=== PATIENT | female | born 2000 | race African-American/Black ===

== ENCOUNTER 2021-02-27 21:54 | Inpatient (IN) | payer OTHER ==
[2021-02-27 22:02] VITALS: BMI 24.1
[2021-02-27] MEDS ORDERED: CEFTRIAXONE 1 GM in DEXTROSE 5%-WATER - 100 ML IVPB ONE (22:38)
[2021-02-27] MEDS ORDERED: CEFTRIAXONE 1 GM/50 ML BAG ONE (22:44)
[2021-02-27] MEDS ORDERED: MEROPENEM 1 GM in DEXTROSE 5%-WATER 100 ML IVPB ONE (22:47)
[2021-02-27] MEDS ORDERED: SODIUM CHLORIDE 1,000 ML IV STA (22:52)
[2021-02-27 23:05] LABS: BASO % 0.3 % (0-2.0); EOS % 0.5 % (0-4.5); HEMATOCRIT 36.3 % (32.4-45.2); LYMPH % 18.2 % (8-40); MCH 28.1 pg (25.7-33.7); MCHC 33.2 g/dl (32.0-36.0); MEAN CELL VOLUME 84.4 fl (80-96); MONO % 13.3 % (3.8-10.2); NEUT % 67.7 % (42.8-82.8); PLATELET COUNT 196 K/MM3 (134-434); RDW 13.7 % (11.6-15.6); WHITE BLOOD COUNT 5.8 K/mm3 (4.0-10.0)
[2021-02-27] MEDS ORDERED: MEROPENEM 1 GM VIAL (RESTRICTED TO ID) IVPB ONE (23:19)
[2021-02-27 23:32] LABS: CHLORIDE 100 mmol/L (98-107); SODIUM 127 mmol/L (136-145)
[2021-02-27 23:35] LABS: ALBUMIN 3.5 g/dl (3.4-5.0); ANION GAP 4 MMOL/L (8-16); BLOOD UREA NITROGEN 4.4 mg/dL (7-18); CALCIUM 8.9 mg/dL (8.5-10.1); CO2 23 mmol/L (21-32); GLUCOSE,RANDOM 86 mg/dL (74-106)
[2021-02-27 23:38] LABS: CREATININE 0.7 mg/dL (0.55-1.3)
[2021-02-27 23:40] LABS: BILIRUBIN,TOTAL 0.5 mg/dL (0.2-1); TOT PROT 8.2 g/dl (6.4-8.2)
[2021-02-27 23:41] LABS: ALK PHOS 90 U/L (45-117); SGOT/AST 95 U/L (15-37); SGPT/ALT 48 U/L (13-61)
[2021-02-27 23:56] LABS: ERYTHROCYTE SEDIMENTATION RATE 29 mm/hr (0-20)
[2021-02-28 00:23] LABS: EPI CELLS >36 /uL (0-25.1); HYALINE CASTS 2 /uL (0-3.1); PH,URINE 6.5 (5.0-8.0); URINE APPEARANCE CLOUDY; URINE BACTERIA 6415 /uL (0-1359); URINE BILIRUBIN NEGATIVE (NEGATIVE); URINE COLOR YELLOW; URINE GLUCOSE (UA) NEGATIVE (NEGATIVE); URINE KETONE 1+ (NEGATIVE); URINE LEUK ESTERASE 3+ (NEGATIVE); URINE NITRITE NEGATIVE (NEGATIVE); URINE PROTEIN 1+ (NEGATIVE); URINE RBC 22 /uL (0-23.9); URINE UROBILINOGEN 0.2 mg/dL (0.2-1.0); URINE WBC 1213 /uL (0-25.8)
[2021-02-28 00:41] LABS: BLOOD UREA NITROGEN 3.9 mg/dL (7-18)
[2021-02-28 01:01] LABS: CALCIUM 8.5 mg/dL (8.5-10.1); CREATININE 0.6 mg/dL (0.55-1.3)
[2021-02-28] MEDS ORDERED: ACETAMINOPHEN 1000 MG/100 ML VIAL (NON FORMULARY) IVPB ONE (01:03)
[2021-02-28] MEDS ORDERED: MAGNESIUM SULF 50% (8.12 MEQ/2 ML-1 GM VIAL) IVPB ONE (01:13)
[2021-02-28] MEDS ORDERED: POTASSIUM CHLORIDE TABS 20 MEQ TABLET.ER (FP) PO ONE ×2 (01:13→01:24)
[2021-02-28] MEDS ORDERED: MAGNESIUM 1GM/D5W - 1 GM/100 ML IVPB IVPB ONE (01:24)
[2021-02-28] MEDS ORDERED: ACETAMINOPHEN INJECTION 100 ML IVPB ONE (01:24)
[2021-02-28] MEDS ORDERED: ONDANSETRON 4 MG/2 ML VIAL IVPUSH PRN (05:25)
[2021-02-28] MEDS ORDERED: ALBUTEROL SO4 HFA INHALER IH PRN (05:33)
[2021-02-28] MEDS: LACTATED RINGERS SOLUTION 1,000 ML IV SCH (06:39)
[2021-02-28] MEDS ORDERED: MEROPENEM 1 GM in DEXTROSE 5%-WATER 100 ML IVPB SCH ×2 (09:45→10:00)
[2021-02-28] MEDS ORDERED: DEXTROSE 5%-WATER 100 ML IVPB ONE (19:58)
[2021-02-28] MEDS ORDERED: MEROPENEM 1 GM VIAL (RESTRICTED TO ID) IVPB ONE (19:58)
[2021-02-28] MEDS: MEROPENEM 1 GM in DEXTROSE 5%-WATER 100 ML IVPB SCH (20:03)
[2021-03-01] MEDS ORDERED: DEXTROSE 5%-WATER 100 ML IVPB ONE ×3 (00:09→17:34)
[2021-03-01] MEDS ORDERED: MEROPENEM 1 GM VIAL (RESTRICTED TO ID) IVPB ONE ×3 (00:09→17:34)
[2021-03-01] MEDS: MEROPENEM 1 GM in DEXTROSE 5%-WATER 100 ML IVPB SCH ×3 (02:01→18:05)
[2021-03-01] MEDS: LACTATED RINGERS SOLUTION 1,000 ML IV SCH ×2 (04:18→15:42)
[2021-03-01 08:27] LABS: BASO % 0.7 % (0-2.0); EOS % 5.1 % (0-4.5); HEMATOCRIT 33.3 % (32.4-45.2); HEMOGLOBIN 11.2 GM/dL (10.7-15.3); LYMPH % 62.7 % (8-40); MCH 27.9 pg (25.7-33.7); MCHC 33.5 g/dl (32.0-36.0); MEAN CELL VOLUME 83.1 fl (80-96); MEAN PLT VOLUME 8.1 fl (7.5-11.1); MONO % 16.9 % (3.8-10.2); NEUT % 14.6 % (42.8-82.8); PLATELET COUNT 204 K/MM3 (134-434); RBC 4.01 M/mm3 (3.60-5.2); RDW 13.2 % (11.6-15.6); WHITE BLOOD COUNT 2.7 K/mm3 (4.0-10.0)
[2021-03-01 08:52] LABS: CALCIUM 8.5 mg/dL (8.5-10.1)
[2021-03-01 08:53] LABS: ALBUMIN 3.2 g/dl (3.4-5.0); BLOOD UREA NITROGEN 3.8 mg/dL (7-18); MAGNESIUM 1.9 mg/dL (1.8-2.4)
[2021-03-01 08:56] LABS: CREATININE 0.5 mg/dL (0.55-1.3); PHOSPHOROUS 3.3 mg/dL (2.5-4.9)
[2021-03-01 08:58] LABS: TOT PROT 6.3 g/dl (6.4-8.2)
[2021-03-01 09:00] LABS: BILIRUBIN,TOTAL 0.3 mg/dL (0.2-1)
[2021-03-01 13:27] LABS: ANISOCYTOSIS 0; MACROCYTOSIS 0; OVALOCYTE 1+; PLATELET ESTIMATE NORMAL
[2021-03-01] MEDS: HEPARIN NA (PORCINE) 5,000 UNITS/ML 1ML VIAL SQ SCH (21:14)
[2021-03-02] MEDS ORDERED: MEROPENEM 1 GM VIAL (RESTRICTED TO ID) IVPB ONE ×3 (02:13→17:19)
[2021-03-02] MEDS ORDERED: DEXTROSE 5%-WATER 100 ML IVPB ONE ×3 (02:14→17:20)
[2021-03-02] MEDS: MEROPENEM 1 GM in DEXTROSE 5%-WATER 100 ML IVPB SCH ×3 (03:39→17:28)
[2021-03-02] MEDS: LACTATED RINGERS SOLUTION 1,000 ML IV SCH ×4 (06:47→20:25)
[2021-03-02] MEDS: HEPARIN NA (PORCINE) 5,000 UNITS/ML 1ML VIAL SQ SCH ×2 (06:48→14:27)
[2021-03-02 07:23] LABS: HEMATOCRIT 34.5 % (32.4-45.2); HEMOGLOBIN 11.7 GM/dL (10.7-15.3); MCH 28.1 pg (25.7-33.7); MCHC 33.9 g/dl (32.0-36.0); MEAN CELL VOLUME 82.9 fl (80-96); MEAN PLT VOLUME 8.1 fl (7.5-11.1); PLATELET COUNT 204 K/MM3 (134-434); RBC 4.16 M/mm3 (3.60-5.2); RDW 13.3 % (11.6-15.6); WHITE BLOOD COUNT 3.6 K/mm3 (4.0-10.0)
[2021-03-02 07:41] LABS: BLOOD UREA NITROGEN 7.1 mg/dL (7-18); CALCIUM 8.9 mg/dL (8.5-10.1)
[2021-03-02 07:45] LABS: CREATININE 0.5 mg/dL (0.55-1.3)
[2021-03-02 11:52] LABS: ANISOCYTOSIS 0; MACROCYTOSIS 0; PLATELET ESTIMATE NORMAL
[2021-03-02 22:24] LABS: EPI CELLS >36 /uL (0-25.1); HYALINE CASTS 7 /uL (0-3.1); URINE APPEARANCE CLOUDY; URINE BACTERIA 590 /uL (0-1359); URINE BILIRUBIN NEGATIVE (NEGATIVE); URINE COLOR YELLOW; URINE GLUCOSE (UA) NEGATIVE (NEGATIVE); URINE KETONE NEGATIVE (NEGATIVE); URINE LEUK ESTERASE 2+ (NEGATIVE); URINE NITRITE NEGATIVE (NEGATIVE); URINE PROTEIN NEGATIVE (NEGATIVE); URINE RBC 21 /uL (0-23.9); URINE UROBILINOGEN 0.2 mg/dL (0.2-1.0); URINE WBC 438 /uL (0-25.8)
[2021-03-03] MEDS ORDERED: DEXTROSE 5%-WATER 100 ML IVPB ONE ×3 (01:57→18:24)
[2021-03-03] MEDS ORDERED: MEROPENEM 1 GM VIAL (RESTRICTED TO ID) IVPB ONE ×3 (01:57→18:24)
[2021-03-03] MEDS: MEROPENEM 1 GM in DEXTROSE 5%-WATER 100 ML IVPB SCH ×3 (01:59→18:29)
[2021-03-03 07:46] LABS: BASO % 0.5 % (0-2.0); EOS % 4.5 % (0-4.5); HEMATOCRIT 35.4 % (32.4-45.2); HEMOGLOBIN 11.8 GM/dL (10.7-15.3); LYMPH % 60.6 % (8-40); MCH 27.9 pg (25.7-33.7); MCHC 33.4 g/dl (32.0-36.0); MEAN CELL VOLUME 83.7 fl (80-96); MEAN PLT VOLUME 7.9 fl (7.5-11.1); MONO % 13.9 % (3.8-10.2); NEUT % 20.5 % (42.8-82.8); PLATELET COUNT 234 K/MM3 (134-434); RBC 4.23 M/mm3 (3.60-5.2); RDW 13.3 % (11.6-15.6)
[2021-03-03 08:19] LABS: CHLORIDE 107 mmol/L (98-107); SODIUM 140 mmol/L (136-145)
[2021-03-03 08:28] LABS: ALBUMIN 3.4 g/dl (3.4-5.0); ANION GAP 4 MMOL/L (8-16); CALCIUM 9.3 mg/dL (8.5-10.1); CO2 29 mmol/L (21-32); GLUCOSE,RANDOM 84 mg/dL (74-106)
[2021-03-03 08:30] LABS: SGOT/AST 24 U/L (15-37); SGPT/ALT 43 U/L (13-61)
[2021-03-03 08:31] LABS: CREATININE 0.6 mg/dL (0.55-1.3)
[2021-03-03 08:32] LABS: BILIRUBIN,TOTAL 0.3 mg/dL (0.2-1); TOT PROT 6.8 g/dl (6.4-8.2)
[2021-03-03 08:33] LABS: ALK PHOS 96 U/L (45-117)
[2021-03-03 08:55] LABS: BLOOD UREA NITROGEN 2.7 mg/dL (7-18)
[2021-03-03 10:19] LABS: ANISOCYTOSIS 0; MACROCYTOSIS 0; PLATELET ESTIMATE NORMAL
[2021-03-03] MEDS: LACTATED RINGERS SOLUTION 1,000 ML IV SCH ×2 (13:07→18:29)
[2021-03-04] MEDS ORDERED: MEROPENEM 1 GM VIAL (RESTRICTED TO ID) IVPB ONE ×2 (02:48→08:53)
[2021-03-04] MEDS ORDERED: DEXTROSE 5%-WATER 100 ML IVPB ONE ×2 (02:48→08:54)
[2021-03-04] MEDS: MEROPENEM 1 GM in DEXTROSE 5%-WATER 100 ML IVPB SCH ×2 (02:58→10:50)
[2021-03-04 07:38] LABS: BASO % 0.4 % (0-2.0); EOS % 4.6 % (0-4.5); HEMATOCRIT 35.8 % (32.4-45.2); HEMOGLOBIN 11.8 GM/dL (10.7-15.3); LYMPH % 62.1 % (8-40); MCH 27.6 pg (25.7-33.7); MEAN CELL VOLUME 83.7 fl (80-96); MEAN PLT VOLUME 7.9 fl (7.5-11.1); MONO % 13.7 % (3.8-10.2); NEUT % 19.2 % (42.8-82.8); PLATELET COUNT 239 K/MM3 (134-434); RBC 4.27 M/mm3 (3.60-5.2); RDW 13.5 % (11.6-15.6); WHITE BLOOD COUNT 4.1 K/mm3 (4.0-10.0)
[2021-03-04 07:52] LABS: CALCIUM 8.9 mg/dL (8.5-10.1)
[2021-03-04 07:53] LABS: BLOOD UREA NITROGEN 6.9 mg/dL (7-18)
[2021-03-04 07:55] LABS: CREATININE 0.5 mg/dL (0.55-1.3)
[2021-03-04 11:04] LABS: ANISOCYTOSIS 0; MACROCYTOSIS 0; OVALOCYTE 1+; PLATELET ESTIMATE NORMAL
[2021-03-04] MEDS ORDERED: ERTAPENEM SODIUM 1 GM in SODIUM CHLORIDE 50 ML IVPB ONE (12:00)
[2021-03-04] MEDS ORDERED: ERTAPENEM SODIUM 1 GM VIAL ONE (12:33)
[2021-03-04] MEDS ORDERED: SODIUM CHLORIDE 50 ML IVPB ONE (12:34)
[2021-03-04 14:23] VITALS: BP 108/59; PULSE 57; TEMP 98.3
[2021-03-04] MEDS: LACTATED RINGERS SOLUTION 1,000 ML IV SCH (15:00)
== END 2021-03-04 15:02 | disposition home or self-care (01) | DRG 690 ==
LOC: JER 21:54 → JERBED 02-28 04:21 → J7W 02-28 19:34
PROVIDERS: ADMIT Internal Medicine; ATTEND Internal Medicine
PROC: 02HV33Z Insertion of Infusion Device into Superior Vena Cava, Percutaneous Approach (ICD-10-PCS; principal; 2021-03-04)
DX: N39.0 Urinary tract infection, site not specified (principal); Q61.3 Polycystic kidney, unspecified; Z16.12 Extended spectrum beta lactamase (ESBL) resistance; J45.909 Unspecified asthma, uncomplicated; E87.6 Hypokalemia; E83.42 Hypomagnesemia; I89.0 Lymphedema, not elsewhere classified
CPT/HCPCS: 36415; 36569; 76775-TC; 80048; 80053; 81003; 82962; 83735; 84100; 84703; 85025; 85027; 85651; 87040; 87086; 93005; 93010; 99285-25; C9803; J0131; J1644; U0003; U0005

== ENCOUNTER 2021-03-05 10:48 | Day surgery (SDC) | payer OTHER ==
[~2021-03-05 10:48] MED LIST: ERTAPENEM SODIUM 1 GM in SODIUM CHLORIDE 50 ML IVPB ONE
[2021-03-05] MEDS ORDERED: ERTAPENEM SODIUM 1 GM VIAL ONE (11:03)
[2021-03-05] MEDS ORDERED: SODIUM CHLORIDE 50 ML IVPB ONE (11:04)
[2021-03-05 13:29] VITALS: BP 120/76; PULSE 68; TEMP 98
== END 2021-03-05 13:29 | disposition home or self-care (01) ==
LOC: JINFUSION 10:48 → J7W 10:49 → JINFUSION 13:29
PROVIDERS: ATTEND Internal Medicine Infectious Disease
DX: N39.0 Urinary tract infection, site not specified (principal); Z16.12 Extended spectrum beta lactamase (ESBL) resistance
CPT/HCPCS: 96365

== ENCOUNTER 2021-03-06 10:30 | Day surgery (SDC) | payer OTHER ==
[2021-03-06] MEDS ORDERED: ERTAPENEM SODIUM 1 GM in SODIUM CHLORIDE 50 ML IVPB ONE (10:45)
[2021-03-06] MEDS ORDERED: ERTAPENEM SODIUM 1 GM VIAL ONE (10:48)
[2021-03-06] MEDS ORDERED: SODIUM CHLORIDE 50 ML IVPB ONE (10:48)
[2021-03-06 15:51] VITALS: BP 120/76; PULSE 87; TEMP 98
== END 2021-03-06 11:40 | disposition home or self-care (01) ==
LOC: J7W 10:30 → JINFUSION 10:30
PROVIDERS: ATTEND Internal Medicine Infectious Disease
DX: N39.0 Urinary tract infection, site not specified (principal); Z16.12 Extended spectrum beta lactamase (ESBL) resistance
CPT/HCPCS: 96365

== ENCOUNTER 2021-03-07 10:43 | Day surgery (SDC) | payer OTHER ==
[2021-03-07] MEDS ORDERED: ERTAPENEM SODIUM 1 GM VIAL ONE (10:45)
[2021-03-07] MEDS ORDERED: SODIUM CHLORIDE 50 ML IVPB ONE (10:46)
[2021-03-07 11:05] VITALS: TEMP 98.4
[2021-03-07 11:14] VITALS: BP 116/76; PULSE 79
== END 2021-03-07 11:40 | disposition home or self-care (01) ==
LOC: J7W 10:43 → JINFUSION 10:43 → EDSTATUS 18:31
PROVIDERS: ATTEND Internal Medicine Infectious Disease
DX: N39.0 Urinary tract infection, site not specified (principal); Z16.12 Extended spectrum beta lactamase (ESBL) resistance
CPT/HCPCS: 96365

== ENCOUNTER 2021-03-08 10:29 | Day surgery (SDC) | payer OTHER ==
[2021-03-08] MEDS ORDERED: SODIUM CHLORIDE 50 ML IVPB ONE (10:38)
[2021-03-08] MEDS ORDERED: ERTAPENEM SODIUM 1 GM VIAL ONE (10:38)
[2021-03-08] MEDS ORDERED: ERTAPENEM SODIUM 1 GM in SODIUM CHLORIDE 50 ML IVPB ONE (11:00)
[2021-03-08 11:58] VITALS: BP 110/73; PULSE 80; TEMP 98
== END 2021-03-08 13:04 | disposition home or self-care (01) ==
LOC: JINFUSION 10:29 → J7W 10:30 → JINFUSION 13:04
PROVIDERS: ATTEND Internal Medicine Infectious Disease
DX: N39.0 Urinary tract infection, site not specified (principal); Z16.12 Extended spectrum beta lactamase (ESBL) resistance
CPT/HCPCS: 96365

== ENCOUNTER 2021-03-09 10:28 | Day surgery (SDC) | payer OTHER ==
[2021-03-09] MEDS ORDERED: ERTAPENEM SODIUM 1 GM in SODIUM CHLORIDE 50 ML IVPB ONE (10:45)
[2021-03-09] MEDS ORDERED: ERTAPENEM SODIUM 1 GM VIAL ONE (10:48)
[2021-03-09] MEDS ORDERED: SODIUM CHLORIDE 50 ML IVPB ONE (10:48)
[2021-03-09 12:06] VITALS: BP 112/61; PULSE 77; TEMP 98
== END 2021-03-09 11:30 | disposition home or self-care (01) ==
LOC: JINFUSION 10:28 → J7W 10:41 → JINFUSION 11:30
PROVIDERS: ATTEND Internal Medicine Infectious Disease
DX: N39.0 Urinary tract infection, site not specified (principal); Z16.12 Extended spectrum beta lactamase (ESBL) resistance
CPT/HCPCS: 96365

== ENCOUNTER 2021-03-10 10:37 | Day surgery (SDC) | payer OTHER ==
[2021-03-10] MEDS ORDERED: SODIUM CHLORIDE 50 ML IVPB ONE (11:06)
[2021-03-10] MEDS ORDERED: ERTAPENEM SODIUM 1 GM VIAL ONE (11:06)
[2021-03-10 12:07] VITALS: BP 111/58; PULSE 68; TEMP 98.9
== END 2021-03-10 14:28 | disposition home or self-care (01) ==
LOC: J7W 10:37 → JINFUSION 10:37
PROVIDERS: ATTEND Internal Medicine Infectious Disease
DX: N39.0 Urinary tract infection, site not specified (principal); Z16.12 Extended spectrum beta lactamase (ESBL) resistance
CPT/HCPCS: 96365

== ENCOUNTER 2021-03-11 10:40 | Day surgery (SDC) | payer OTHER ==
[2021-03-11] MEDS ORDERED: ERTAPENEM SODIUM 1 GM VIAL ONE (10:46)
[2021-03-11] MEDS ORDERED: SODIUM CHLORIDE 50 ML IVPB ONE (10:47)
[2021-03-11 11:11] VITALS: TEMP 98.8
[2021-03-11 11:47] VITALS: BP 112/72; PULSE 78
== END 2021-03-11 11:51 | disposition home or self-care (01) ==
LOC: J7W 10:40 → JINFUSION 10:40
PROVIDERS: ATTEND Internal Medicine Infectious Disease
DX: N39.0 Urinary tract infection, site not specified (principal); Z16.12 Extended spectrum beta lactamase (ESBL) resistance
CPT/HCPCS: 96365

== ENCOUNTER 2021-03-12 10:39 | Day surgery (SDC) | payer OTHER ==
[2021-03-12] MEDS ORDERED: ERTAPENEM SODIUM 1 GM in SODIUM CHLORIDE 50 ML IVPB ONE (10:45)
[2021-03-12] MEDS ORDERED: SODIUM CHLORIDE 50 ML IVPB ONE (10:47)
[2021-03-12] MEDS ORDERED: ERTAPENEM SODIUM 1 GM VIAL ONE (10:47)
[2021-03-12 11:42] VITALS: BP 120/71; PULSE 81; TEMP 98.1
== END 2021-03-12 11:42 | disposition home or self-care (01) ==
LOC: JINFUSION 10:39 → J7W 10:39 → JINFUSION 11:42
PROVIDERS: ATTEND Internal Medicine Infectious Disease
PROC: 3E033GC Introduction of Other Therapeutic Substance into Peripheral Vein, Percutaneous Approach (ICD-10-PCS; principal; 2021-03-12)
DX: N39.0 Urinary tract infection, site not specified (principal); Z16.12 Extended spectrum beta lactamase (ESBL) resistance
CPT/HCPCS: 96365

== ENCOUNTER 2021-03-13 10:38 | Day surgery (SDC) | payer OTHER ==
[2021-03-13] MEDS ORDERED: ERTAPENEM SODIUM 1 GM VIAL ONE (10:42)
[2021-03-13] MEDS ORDERED: SODIUM CHLORIDE 50 ML IVPB ONE (10:42)
[2021-03-13 11:00] VITALS: TEMP 99
[2021-03-13 11:17] VITALS: BP 128/63; PULSE 82
== END 2021-03-13 11:30 | disposition home or self-care (01) ==
LOC: JINFUSION 10:38 → J7W 10:39 → JINFUSION 11:30
PROVIDERS: ATTEND Internal Medicine Infectious Disease
DX: N39.0 Urinary tract infection, site not specified (principal); Z16.12 Extended spectrum beta lactamase (ESBL) resistance
CPT/HCPCS: 96365

== ENCOUNTER 2024-03-11 16:07 | Emergency (ER) | payer OTHER ==
[2024-03-11 16:19] VITALS: RESP 18; TEMP 98.6; BMI 60.5
[2024-03-11] MEDS ORDERED: ACETAMINOPHEN INJECTION 100 ML IVPB ONE (17:45)
[2024-03-11 17:50] LABS: BASO % 0.2 % (0-2.0); EOS % 0.4 % (0-4.5); HEMATOCRIT 40.9 % (32.4-45.2); HEMOGLOBIN 13.3 GM/dL (10.7-15.3); LYMPH % 16.1 % (8-40); MCH 27.1 pg (25.7-33.7); MCHC 32.5 g/dl (32.0-36.0); MEAN CELL VOLUME 83.3 fl (80-96); MONO % 4.9 % (3.8-10.2); NEUT % 78.4 % (42.8-82.8); PLATELET COUNT 282 10^3/uL (134-434); RBC 4.91 M/mm3 (3.60-5.2); WHITE BLOOD COUNT 9.5 K/mm3 (4.0-10.0)
[2024-03-11 17:56] LABS: INR 1.05 (0.83-1.09); PROTHROMBIN TIME (PATIENT) 11.9 SEC (9.7-13.0)
[2024-03-11] MEDS: morphine CARPU-JECT 2 MG/1 ML DISP.SYRIN IVPUSH ONE (17:56)
[2024-03-11 17:59] LABS: ACTIVATED PTT 29.9 SECONDS (25.2-36.5)
[2024-03-11] MEDS: ACETAMINOPHEN 1000 MG/100 ML BAG IVPB ONE (18:00)
[2024-03-11] MEDS: LACTATED RINGERS SOLUTION 1000 ML INFUS.BAG IV ONE (18:01)
[2024-03-11 18:09] LABS: POTASSIUM 4.1 mmol/L (3.5-5.1)
[2024-03-11 18:11] LABS: CALCIUM 9.6 mg/dL (8.5-10.1)
[2024-03-11 18:12] LABS: BLOOD UREA NITROGEN 9.3 mg/dL (7-18)
[2024-03-11 18:14] LABS: CREATININE 0.6 mg/dL (0.55-1.3)
[2024-03-11 18:16] LABS: BILIRUBIN,TOTAL 0.6 mg/dL (0.2-1); TOT PROT 7.7 g/dl (6.4-8.2)
[2024-03-11 20:23] LABS: EPI CELLS >36 /uL (0-25.1); HYALINE CASTS 1 /uL (0-3.1); PH,URINE 8.5 (5.0-8.0); URINE APPEARANCE CLOUDY; URINE BILIRUBIN NEGATIVE (NEGATIVE); URINE COLOR ORANGE; URINE GLUCOSE (UA) NEGATIVE (NEGATIVE); URINE KETONE 2+ (NEGATIVE); URINE LEUK ESTERASE 1+ (NEGATIVE); URINE NITRITE NEGATIVE (NEGATIVE); URINE PROTEIN 1+ (NEGATIVE); URINE RBC 1208 /uL (0-23.9); URINE UROBILINOGEN 0.2 mg/dL (0.2-1.0); URINE WBC 27 /uL (0-25.8)
[2024-03-11 21:16] VITALS: BP 114/74; PULSE 68
[2024-03-11 21:56] LABS: URINE BACTERIA 734.3 /uL (0-1359)
== END 2024-03-11 21:16 | disposition home or self-care (01) ==
LOC: JER 16:07
PROC: 3E030NZ Introduction of Analgesics, Hypnotics, Sedatives into Peripheral Vein, Open Approach (ICD-10-PCS; principal; 2024-03-11)
DX: N93.9 Abnormal uterine and vaginal bleeding, unspecified (principal); R10.2 Pelvic and perineal pain
CPT/HCPCS: 36415; 71046-TC-FY; 76830-TC; 80053; 81003; 83605; 84702; 85025; 85610; 85730; 86140; 87077; 87086; 99285-25; J0131